=== PATIENT | female | born 1975 | race Two or more races ===

== ENCOUNTER 2024-02-09 12:13 | Outpatient (CLI) | payer OTHER | END 2024-02-09 12:19 | disposition home or self-care (01) | LOC: MAMO-SONO 12:13 | DX: N64.4 Mastodynia (principal); N63.0 Unspecified lump in unspecified breast; Z12.31 Encounter for screening mammogram for malignant neoplasm of breast ==

== ENCOUNTER 2024-02-10 07:05 | Outpatient (CLI) | payer OTHER | END 2024-02-10 07:07 | disposition home or self-care (01) | LOC: SONOGRAMA 07:05 | PROVIDERS: ATTEND General Practice | DX: R10.84 Generalized abdominal pain (principal); R10.9 Unspecified abdominal pain ==

== ENCOUNTER 2024-03-08 10:25 | Outpatient (CLI) | payer OTHER | END 2024-03-08 10:43 | disposition home or self-care (01) | LOC: SONOGRAMA 10:25 | DX: E03.9 Hypothyroidism, unspecified (principal) ==